=== PATIENT | male | born 1955 | race Caucasian/White ===

== ENCOUNTER 2022-02-26 06:45 | Inpatient (IN) | payer MEDICARE ==
[2022-02-26] VITALS (584 sets, daily range): BP systolic 92; BP diastolic 78; PULSE 68–87; TEMP 98.2–98.3; O2SAT 77–100
[~2022-02-26] VITALS: Ht 190.5 cm; Wt 142.0 kg
[2022-02-26 07:14] LABS: BASO # 0.1 K/mm3 (0.0-0.2); BASO % 0.5 % (0.0-2.0); EOS # 0.1 K/mm3 (0.0-0.7); EOS % 0.9 % (0.0-4.0); GRAN # 7.5 K/mm3 (1.4-6.5); GRAN % 70.1 % (42.2-75.2); HEMATOCRIT 38.5 % (42.0-52.0); HEMOGLOBIN 13.4 g/dl (13.5-18.0); LYMPH # 1.7 K/mm3 (1.2-3.4); LYMPH % 15.9 % (20.0-51.0); MEAN CELL VOLUME 90 fl (80.0-100.0); MEAN CORPUSCULAR HEMOGLOBIN 31 pg (27-31); MEAN CORPUSCULAR HGB CONC 35 g/dl (33.0-37.0); MEAN PLATELET VOLUME 10.6 fl (7.4-10.4); MONO # 1.3 K/mm3 (0.1-0.6); MONO % 12.2 % (1.7-9.3); PLATELET COUNT 321 K/mm3 (130-400); REDCELL DISTRIBUTION WIDTH-CV 12.9 % (11.5-14.5)
[2022-02-26] MEDS ORDERED: ASPIRIN 81M81 MG/TA2 PO (07:27)
[2022-02-26] MEDS ORDERED: KLOR-CON SPRIN10 MEQ PO (07:27)
[2022-02-26] MEDS ORDERED: MOTRIN 800800 MG/TAB PO (07:28)
[2022-02-26] MEDS ORDERED: SOAANZ40 MG PO (07:28)
[2022-02-26] MEDS ORDERED: BYSTOLIC5 MG PO (07:29)
[2022-02-26] MEDS ORDERED: NEURONTIN800 MG/TAB PO (07:29)
[2022-02-26] MEDS ORDERED: NORVASC 10MG10 MG PO (07:29)
[2022-02-26] MEDS ORDERED: FOSINOPRIL PO (07:31)
[2022-02-26] MEDS ORDERED: MONOPRIL20 MG PO (07:32)
[2022-02-26 07:39] LABS: ALANINE AMINOTRANSFERASE 47 U/L (0-55); ALBUMIN 3.8 gm/dL (3.4-4.8); ALKALINE PHOSPHATASE 79 U/L (40-150); ANION GAP 14 mmol/L (7-16); AST,SGOT 26 U/L (5-34); BILIRUBIN,TOTAL 0.3 mg/dL (0.2-1.2); CALCIUM 8.8 mg/dL (8.4-10.2); CARBON DIOXIDE 25 mmol/L (23-31); CHLORIDE 94 mmol/L (98-107); CREATININE, serum 2.47 mg/dL (0.72-1.25); GLUCOSE 137 mg/dL (70-99); POTASSIUM 3.6 mmol/L (3.5-4.5); SODIUM 133 mmol/L (136-145); TOTAL PROTEIN 8.4 gm/dL (6.2-8.1)
[2022-02-26 07:43] LABS: ALCOHOL(ethanol),MEDICAL < 10 mg/dL (0-10)
[2022-02-26 08:21] LABS: BLOOD UREA NITROGEN 120 mg/dL (8-26)
[2022-02-26] MEDS ORDERED: KEPPRA 500MG500 MG PO (08:31)
[2022-02-26 09:31] LABS: COLLECTION METHOD CLEAN CATCH
[2022-02-26 09:40] LABS: SQUAMOUS EPITHELIAL 0-2 /hpf (0-10); URINE BACTERIA None Seen /hpf (NONE SEEN); URINE RBC 0-2 /hpf (0-2)
[2022-02-26 09:41] LABS: URINE APPEARANCE Clear (CLEAR/HAZY); URINE BLOOD Negative (NEGATIVE); URINE COLOR Yellow (YELLOW); URINE GLUCOSE Negative (NEGATIVE); URINE KETONE Negative (NEGATIVE); URINE NITRATE Negative (NEGATIVE); URINE PROTEIN(semi-quant) Negative (NEGATIVE); URINE UROBILINOGEN 0.2 E.U/dL (0.2-1.0)
[2022-02-26] MEDS ORDERED: TYLENOL 500MG500 MG PO (14:04)
[2022-02-26 15:51] LABS: TRICYCLIC ANTIDEPRESS URINE NEGATIVE
[2022-02-27] VITALS (217 sets, daily range): BP systolic 122–138; BP diastolic 68–82; PULSE 65–89; TEMP 98.8–99.1; O2SAT 54–100
[2022-02-27] MEDS ORDERED: PERCOCET 325 MG1 TA2 PO (04:25)
[2022-02-27 05:59] LABS: BASO % 0.2 % (0.0-2.0); EOS # 0.1 K/mm3 (0.0-0.7); EOS % 1.1 % (0.0-4.0); GRAN # 5.7 K/mm3 (1.4-6.5); GRAN % 62.6 % (42.2-75.2); HEMOGLOBIN 12.7 g/dl (13.5-18.0); LYMPH # 2.1 K/mm3 (1.2-3.4); LYMPH % 23.2 % (20.0-51.0); MEAN CELL VOLUME 92 fl (80.0-100.0); MEAN CORPUSCULAR HEMOGLOBIN 32 pg (27-31); MEAN CORPUSCULAR HGB CONC 35 g/dl (33.0-37.0); MEAN PLATELET VOLUME 10.2 fl (7.4-10.4); MONO # 1.1 K/mm3 (0.1-0.6); MONO % 12.6 % (1.7-9.3); PLATELET COUNT 279 K/mm3 (130-400); RED BLOOD COUNT 3.98 M/mm3 (4.20-5.60); REDCELL DISTRIBUTION WIDTH-CV 13.2 % (11.5-14.5)
[2022-02-27 06:04] LABS: HEMATOCRIT 36.5 % (42.0-52.0)
[2022-02-27 06:15] LABS: CALCIUM 8.6 mg/dL (8.4-10.2); CREATININE, serum 2.16 mg/dL (0.72-1.25); POTASSIUM 3.4 mmol/L (3.5-4.5)
--- NOTE | 2022-02-27 07:38 | NUR ---
BEDSIDE SHIFT REPORT RECEIVED FROM LATESHA GAYLE. PT CURRENTLY RESTING IN BED. IN C/O PAIN OR DISCOMFORT AT THIS TIME. VSS. SALINE LOCKED. VSS.
--- NOTE | 2022-02-27 11:57 | NUR ---
SW met with patient to complete intake. Patient states he lives alone. Next of kin is his daughter Nadira [phone] or [phone]. Patient states that he uses a cane and is independent with ADL's. Patient does not utilize HH services at this time. PCP is Dr. Jean, pharmacy is [facility]. Patient does not have a DPOA/HC and does not wish to appoint anyone at this time. Patient plans to return to his home upon DC. SW will continue to follow. DC plan: home
--- NOTE | 2022-02-27 16:30 | NUR ---
Patient to room 358 from the ICU. A&Ox4. VSS. IV CDI. Reports pain in back, pain medication given when requested. Nurse oriented the patient to location, room and call light. No further needs expressed. Call light within reach
--- NOTE | 2022-02-27 19:20 | NUR ---
Patient sitting up in bed watching TV. A&Ox4. VSS. IV CDI. Nurse instructed the patient to call nursing staff for assistance with ambulation. No further needs expressed. Call light within reach
[2022-02-28] VITALS: BP 132/62; PULSE 82; TEMP 98.6; TEMP 986
[2022-02-28 04:30] VITALS: BP 147/65; PULSE 86; TEMP 98.8
[2022-02-28 06:43] LABS: BASO % 0.5 % (0.0-2.0); EOS # 0.1 K/mm3 (0.0-0.7); EOS % 0.8 % (0.0-4.0); GRAN # 5.9 K/mm3 (1.4-6.5); GRAN % 71.4 % (42.2-75.2); HEMOGLOBIN 12.3 g/dl (13.5-18.0); LYMPH # 1.4 K/mm3 (1.2-3.4); LYMPH % 16.2 % (20.0-51.0); MEAN CELL VOLUME 93 fl (80.0-100.0); MEAN CORPUSCULAR HEMOGLOBIN 31 pg (27-31); MEAN CORPUSCULAR HGB CONC 33 g/dl (33.0-37.0); MEAN PLATELET VOLUME 11.1 fl (7.4-10.4); MONO # 0.9 K/mm3 (0.1-0.6); MONO % 10.7 % (1.7-9.3); PLATELET COUNT 298 K/mm3 (130-400); RED BLOOD COUNT 3.97 M/mm3 (4.20-5.60)
[2022-02-28 06:47] LABS: HEMATOCRIT 36.9 % (42.0-52.0)
[2022-02-28 07:02] LABS: ALBUMIN 3.5 gm/dL (3.4-4.8); CALCIUM 8.5 mg/dL (8.4-10.2); CREATININE, serum 2.24 mg/dL (0.72-1.25); MAGNESIUM 2.2 mg/dL (1.6-2.6); PHOSPHOROUS 4.6 mg/dL (2.3-4.7); POTASSIUM 4.3 mmol/L (3.5-4.5)
--- NOTE | 2022-02-28 07:30 | NUR ---
Patient sitting up on the edge of bed, A&Ox4. VSS. IV CDI. Reports pain in back, pain medication given when requested. Patient awaiting a procedure. Patient also attaching insulin pump and utilizing the pump to monitor WBG. Doctor aware. No further needs expressed. Call light within reach
[2022-02-28 08:00] VITALS: BP 156/89; PULSE 82; TEMP 97.9
[2022-02-28 12:27] VITALS: BP 124/62; PULSE 73; TEMP 98
--- NOTE | 2022-02-28 14:45 | NUR ---
Patient took out IV LF AC. Nursing staff transported the patient by wheelchair to awaiting vehicle. Personal belongings and discharge paperwork with the patient. No further needs expressed.
== END 2022-02-28 14:45 | disposition home or self-care (01) | DRG 101 ==
LOC: COL.ER 06:45 → MEDICAL 09:50 → ICU 09:50 → MEDICAL 02-27 14:30
PROVIDERS: Emergency Medicine; Internal Medicine; ADMIT Student in an Organized Health Care Education/Training Program
DX: G40.909 Epilepsy, unspecified, not intractable, without status epilepticus (principal); E87.1 Hypo-osmolality and hyponatremia; N17.9 Acute kidney failure, unspecified; I13.0 Hypertensive heart and chronic kidney disease with heart failure and stage 1 through stage 4 chronic kidney disease, or unspecified chronic kidney disease; G91.9 Hydrocephalus, unspecified; I50.9 Heart failure, unspecified; G47.33 Obstructive sleep apnea (adult) (pediatric); E11.42 Type 2 diabetes mellitus with diabetic polyneuropathy; E11.22 Type 2 diabetes mellitus with diabetic chronic kidney disease; N18.2 Chronic kidney disease, stage 2 (mild); E87.8 Other disorders of electrolyte and fluid balance, not elsewhere classified; I35.0 Nonrheumatic aortic (valve) stenosis; M62.838 Other muscle spasm; Z87.891 Personal history of nicotine dependence; Z90.49 Acquired absence of other specified parts of digestive tract; Z79.82 Long term (current) use of aspirin; Z79.4 Long term (current) use of insulin; Z88.6 Allergy status to analgesic agent; Z88.8 Allergy status to other drugs, medicaments and biological substances
CPT/HCPCS: J1650; J1815; J1940; J1953; J7030